=== PATIENT | male | born 1995 | race Caucasian/White ===

== ENCOUNTER 2023-02-19 20:18 | Inpatient (IN) | payer MEDICAID ==
[~2023-02-19] VITALS: Ht 170.2 cm; Wt 84.5 kg
[2023-02-19] MEDS ORDERED: LORazepam 2 MG TABLET PO PRN (22:00)
[2023-02-19] MEDS ORDERED: HALOPERIDOL 5 MG TABLET PO PRN (22:00)
[2023-02-19 23:30] VITALS: BP 128/77
[2023-02-19] MEDS: ZOLPIDEM TARTRATE 10 MG TABLET PO PRN (23:47)
[2023-02-20 08:19] LABS: BASOPHILS % (AUTO) 0.5 % (0.0-2.0); EOSINOPHILS % (AUTO) 6.8 % (1.0-6.0); HEMATOCRIT 47.3 % (41-53); HEMOGLOBIN 15.7 g/dL (13.5-17.5); LYMPHOCYTES # (AUTO) 1.9 K/uL (1.0-4.8); LYMPHOCYTES % (AUTO) 41.2 % (22.0-44.0); MEAN CORPUSCULAR HEMOGLOBIN 29.1 pg (26.0-34.0); MEAN CORPUSCULAR HGB CONC 33.3 G/dL (31.0-37.0); MEAN CORPUSCULAR VOLUME 88 fL (80-100); MONOCYTES # (AUTO) 0.4 K/uL (0.1-1.0); MONOCYTES % (AUTO) 9.6 % (2.0-9.0); NEUTROPHILS # (AUTO) 1.9 K/uL (1.8-7.7); NEUTROPHILS % (AUTO) 41.9 % (40.0-70.0); PLATELET COUNT (AUTO) 249 K/uL (150-450); RED CELL DISTRIBUTION WIDTH 12.9 % (11.5-14.5)
[2023-02-20 08:21] LABS: HEMOGLOBIN A1C 4.8 % (3.8-5.6)
[2023-02-20 08:23] LABS: ALANINE AMINOTRANSFERASE 16 U/L (12-78); ALBUMIN 3.9 g/dL (3.4-5.0); ALKALINE PHOSPHATASE 81 U/L (46-116); ANION GAP 8 mmol/L (8-16); ASPARTATE AMINOTRANSFERASE 11 U/L (15-37); BILIRUBIN,TOTAL 0.7 mg/dL (0.1-1.0); CALCIUM, TOTAL 9.1 mg/dL (8.8-10.5); CARBON DIOXIDE 27 mmol/L (22-29); CHLORIDE 105 mmol/L (98-107); CHOL/HDL RATIO 3.4 (4.2-7.3); CHOLESTEROL 130 mg/dL (131-200); FREE T4 (FREE THYROXINE) 0.91 ng/dL (0.76-1.46); GLOMERULAR FILTR. RATE CALC > 60 mL/min (>60); GLUCOSE,RANDOM 84 mg/dL (70-110); HDL CHOLESTEROL 38 mg/dL (40-60); LDL CHOL (CALC.) 78 mg/dL (0-130); POTASSIUM 3.8 mmol/L (3.5-5.1); SODIUM SERUM 140 mmol/L (136-145); THYROID STIMULATING HORMONE 0.99 uIU/mL (0.36-3.74); TOTAL PROTEIN, SERUM 6.7 g/dL (6.4-8.2); TRIGLYCERIDES 72 mg/dL (15-150); UREA NITROGEN, BLOOD 12 mg/dL (7-18)
[2023-02-20 08:44] VITALS: BP 112/62
[2023-02-20] MEDS: SERTRALINE HCL 50 MG TABLET PO SCH (10:34)
[2023-02-20] MEDS ORDERED: GuaiFENesin/D-METHORPHAN [SUGAR-FREE] 200-20MG/10 ML SYRUP UDCUP PO PRN (14:15)
[2023-02-20] MEDS ORDERED: MAGNESIUM HYDROXIDE SUSPENSION 30 ML UDCUP PO PRN (14:15)
[2023-02-20] MEDS ORDERED: MAG HYDROX/AL HYDROX/SIMETH ES 30 ML SUSPENSION UDCUP PO PRN (14:15)
[2023-02-20] MEDS ORDERED: ALBUTEROL SULFATE HFA 90 MCG/PUFF 8 GM INHALER IH PRN (14:15)
[2023-02-20] MEDS ORDERED: ACETAMINOPHEN 325 MG TABLET PO PRN (14:15)
[2023-02-20] MEDS ORDERED: LOPERAMIDE HCL 2 MG CAPSULE PO PRN (14:15)
[2023-02-20] MEDS ORDERED: DOCUSATE SODIUM 100 MG CAPSULE PO PRN (14:15)
[2023-02-20] MEDS ORDERED: PETROLATUM,WHITE 28 GM JELLY TP PRN (14:15)
[2023-02-20] MEDS ORDERED: ONDANSETRON HCL 4 MG TABLET PO PRN (14:15)
[2023-02-20] MEDS ORDERED: CloNIDine HCL 0.1 MG TABLET PO PRN (14:15)
[2023-02-20] MEDS ORDERED: IBUPROFEN 400 MG TABLET PO PRN (14:15)
[2023-02-20] MEDS ORDERED: NICOTINE 14 MG/24 HOUR PATCH TD PRN (14:15)
[2023-02-20 20:50] VITALS: BP 118/63
[2023-02-20] MEDS: CEPHALEXIN MONOHYDRATE 500 MG CAPSULE PO SCH (20:56)
[2023-02-20] MEDS: BACITRACIN 28 GM OINTMENT TP SCH (20:56)
[2023-02-20] MEDS ORDERED: OLANZapine 10 MG TABLET PO SCH (21:00)
[2023-02-20] MEDS: ZOLPIDEM TARTRATE 10 MG TABLET PO PRN (21:01)
[2023-02-21] MEDS: SERTRALINE HCL 50 MG TABLET PO SCH (08:43)
[2023-02-21] MEDS: CEPHALEXIN MONOHYDRATE 500 MG CAPSULE PO SCH ×2 (08:43→12:55)
[2023-02-21] MEDS: BACITRACIN 28 GM OINTMENT TP SCH (08:47)
[2023-02-21] MEDS ORDERED: SULFAMETHOX/TRIMETH DS 800-160 MG/TABLET PO SCH (09:00)
[2023-02-21 09:05] VITALS: BP 108/69
[2023-02-21] MEDS ORDERED: OLAN10 PO (10:49)
[2023-02-21] MEDS ORDERED: SERT-439 PO (10:49)
== END 2023-02-21 13:00 | disposition home or self-care (01) | DRG 751 ==
LOC: B2S 20:25
PROVIDERS: ADMIT Psychiatry & Neurology Child & Adolescent Psychiatry; ATTEND Psychiatry & Neurology Child & Adolescent Psychiatry
DX: F33.2 Major depressive disorder, recurrent severe without psychotic features (principal); F10.10 Alcohol abuse, uncomplicated; G47.00 Insomnia, unspecified; F19.10 Other psychoactive substance abuse, uncomplicated
CPT/HCPCS: 80053; 80061; 83036; 84439; 84443; 85025